=== PATIENT | female | born 1940 | race Caucasian/White ===

== ENCOUNTER → 2016-12-18 | Outpatient (CLI) | payer MEDICARE, OTHER ==
[~2016-12-18] MED LIST: APIDRA100 U/ML SC; APIDRAVL SC; ASPIR-LOW81 MG PO; ASPIR-LOX325 MG PO; ASPIRIN E.C. 8181 MG PO; CALCIUM + D 6001 TA1 PO; CARDI-OMEGA1000 MG PO; CENTRUM SILVER1 TA1 PO; CRESTOR10 MG PO; CRESTOR20 MG PO; DOXYCYCLINE 10100 MG PO; EVISTA; EVISTA 60MG60 MG/TAB PO; FISH OIL CONC1000 MG PO; FOSAMAX 70MG TA70 MG PO; HCTZ 25MG TAB25 MG PO; HUMALOG100 U/ML SC; IMDUR 30MG30 MG/TAB PO; IMDUR 60MG60 MG/TAB PO; K-DUR 2020 MEQ PO; LANTUS SQ; LANTUS100 U/ML SQ; LASIX 40MG TABL40 MG PO; LIORESAL 1010 MG/TAB PO; LISINOPRIL5 MG PO; LOPRESSOR 225 MG/TAB PO; LOPRESSOR 550 MG/TAB PO; METOPROLOL SUCC25 MG PO; NATURAL IRON65 MG PO; NORCO 325 MG-51 TAB PO; NORVASC; NORVASC PO; NORVASC5 MG PO; NOVOLOG 100U100 U/M1 SQ; NOVOLOG 100U100 U/ML SQ; OCUVITE1 TA1 PO; PLAVIX 75MG TAB75 MG PO; POTASSIUM CH2 MEQ/ML PO; POTASSIUM CL 220 MEQ PO; PRINIVIL10 MG PO; PRINIVIL40 MG PO; SYNTHROID0.075 MG/T PO; TIROSINT50 MC1 PO; TOPROL XL25 MG PO; VITAMIN C500 MG PO; ZOCOR 20MG20 MG PO; ZOCOR 40MG40 MG PO; ZOCOR40 MG PO; [UNRECOGNIZED DRUG - OTHER] PO
== END ==
LOC: MC.RAD 09:57
DX: Z12.31 Encounter for screening mammogram for malignant neoplasm of breast (principal)

== ENCOUNTER 2017-04-23 08:44 | Day surgery (SDC) | payer MEDICARE, OTHER ==
[2006-01-25 15:25] VITALS: BP 143/81
[~2017-04-23] VITALS: Ht 152.4 cm; Wt 71.7 kg
[~2017-04-23 08:44] MED LIST changes: -HCTZ 25MG TAB25 MG PO; -LOPRESSOR 550 MG/TAB PO; -NATURAL IRON65 MG PO; -NOVOLOG 100U100 U/M1 SQ; -PRINIVIL40 MG PO; -VITAMIN C500 MG PO
[2017-04-23] MEDS ORDERED: PRINIVIL40 MG PO (09:17)
[2017-04-23] MEDS ORDERED: LOPRESSOR 550 MG/TAB PO (09:18)
[2017-04-23] MEDS ORDERED: HCTZ 25MG TAB25 MG PO (09:18)
[2017-04-23] MEDS ORDERED: VITAMIN C500 MG PO (09:19)
[2017-04-23] MEDS ORDERED: NOVOLOG 100U100 U/M1 SQ (09:19)
[2017-04-23] MEDS ORDERED: NATURAL IRON65 MG PO (09:20)
[2017-04-23 09:47] VITALS: BP 173/66; PULSE 61; TEMP 98.4
[2017-04-23 10:50] VITALS: BP 166/67; PULSE 58; TEMP 97.8
[2017-04-23 11:05] VITALS: BP 160/60; PULSE 65
[2017-04-23 11:20] VITALS: BP 162/55; PULSE 54
[2017-04-23 11:35] VITALS: BP 164/63; PULSE 58
[2017-04-23 13:57] VITALS: BP 127/57; PULSE 51
== END 2017-04-23 13:15 | disposition home or self-care (01) ==
LOC: SDCO 08:44
DX: K29.50 Unspecified chronic gastritis without bleeding (principal); K29.80 Duodenitis without bleeding; D50.9 Iron deficiency anemia, unspecified; E78.00 Pure hypercholesterolemia, unspecified; I10 Essential (primary) hypertension; E11.9 Type 2 diabetes mellitus without complications; Z90.710 Acquired absence of both cervix and uterus; Z95.1 Presence of aortocoronary bypass graft; Z79.4 Long term (current) use of insulin; Z83.71 Family history of colonic polyps
CPT/HCPCS: J2250; J2405; J3010; J7030

== ENCOUNTER → 2017-09-23 | Outpatient (CLI) | payer MEDICARE, OTHER ==
[~2017-09-23] MED LIST changes: +HCTZ 25MG TAB25 MG PO; +LOPRESSOR 550 MG/TAB PO; +NATURAL IRON65 MG PO; +NOVOLOG 100U100 U/M1 SQ; +PRINIVIL40 MG PO; +VITAMIN C500 MG PO
== END ==
LOC: COL.PUL 11:10
DX: I27.20 Pulmonary hypertension, unspecified (principal)
CPT/HCPCS: A9539; A9540

== ENCOUNTER → 2018-06-28 | Outpatient (CLI) | payer MEDICARE, OTHER | LOC: MC.RAD 13:33 | DX: Z12.31 Encounter for screening mammogram for malignant neoplasm of breast (principal) ==

== ENCOUNTER → 2019-09-18 | Outpatient (CLI) | payer MEDICARE, OTHER | LOC: MC.RAD 09:41 | DX: Z12.31 Encounter for screening mammogram for malignant neoplasm of breast (principal) ==

== ENCOUNTER → 2020-09-19 | Outpatient (CLI) | payer MEDICARE, OTHER | LOC: MC.RAD 08:59 | DX: Z12.31 Encounter for screening mammogram for malignant neoplasm of breast (principal) ==

== ENCOUNTER 2023-03-23 15:16 | Emergency (ER) | payer MEDICARE, OTHER ==
[~2023-03-23] VITALS: Ht 152.4 cm; Wt 63.6 kg
[~2023-03-23 15:16] MED LIST changes: -CALCIUM + D 6001 TA1 PO; +CEPHALEXIN500 M1 PO; +COZAAR 50MG50 MG/TAB PO; +CVS GLUCOSE BIT1 CTB PO; +FISH OIL1000 MG PO; +GLUCAGEN1 MG IV; -K-DUR 2020 MEQ PO; +K-DUR20 MEQ PO; +LIPITOR20 MG PO; +NITROSTAT0.4 MG/TAB SL; +NORVASC2.5 MG PO; +OS-CAL 500 + D1 TAB PO; +REFRESH TEARS 330 ML OP; +TOPROL XL 25MG25 MG PO; +TRIAMCINOLONE A15 G3 TP
[2023-03-23 15:36] VITALS: TEMP 98.1
[2023-03-23 16:45] VITALS: BP 174/73; PULSE 98
== END 2023-03-23 16:59 | disposition home or self-care (01) ==
LOC: COL.ER 15:16
DX: S51.812A Laceration without foreign body of left forearm, initial encounter (principal); Z96.631 Presence of right artificial wrist joint; Z28.310 Unvaccinated for COVID-19; W22.09XA Striking against other stationary object, initial encounter

== ENCOUNTER 2024-08-04 09:56 | Observation (INO) | payer MEDICARE, OTHER ==
[2024-08-04] VITALS (12 sets, daily range): BP systolic 99–118; BP diastolic 39–61; PULSE 67–75; TEMP 97.3–97.9
[~2024-08-04] VITALS: Ht 142.2 cm; Wt 72.5 kg
[~2024-08-04 09:56] MED LIST changes: +FERRO-TIME325 MG PO; +PROTONIX 40MG T40 MG PO
[2024-08-04] MEDS ORDERED: NS 1,000 ML IV ONE ×2 (10:30→11:45)
[2024-08-04 10:50] LABS: BASO % 0.4 % (0.0-2.0); EOS % 0.6 % (0.0-4.0); GRAN # 6.2 K/mm3 (1.4-6.5); GRAN % 86.3 % (42.2-75.2); HEMATOCRIT 22.9 % (37.0-47.0); HEMOGLOBIN 7.1 g/dl (12.5-16.0); LYMPH # 0.5 K/mm3 (1.2-3.4); LYMPH % 7.3 % (20.0-51.0); MEAN CELL VOLUME 103 fl (80.0-100.0); MEAN CORPUSCULAR HEMOGLOBIN 32 pg (27-31); MEAN CORPUSCULAR HGB CONC 31 g/dl (33.0-37.0); MEAN PLATELET VOLUME 10.2 fl (7.4-10.4); MONO # 0.4 K/mm3 (0.1-0.6); MONO % 5.3 % (1.7-9.3); PLATELET COUNT 188 K/mm3 (130-400); RED BLOOD COUNT 2.22 M/mm3 (4.10-5.30)
[2024-08-04 11:08] LABS: BILIRUBIN,TOTAL 0.7 mg/dL (0.2-1.2); CALCIUM 8.6 mg/dL (8.4-10.2); CREATININE, serum 1.57 mg/dL (0.57-1.11)
[2024-08-04] MEDS ORDERED: Pantoprazole 40 MG in NS 10 ML IV SCH (11:48)
[2024-08-04] MEDS ORDERED: *Potassium Replacement Protocol MC SCH (12:30)
[2024-08-04] MEDS ORDERED: NORVASC 5MG5 MG/TAB PO (12:36)
[2024-08-04] MEDS ORDERED: LUTEIN20 M1 PO (12:37)
[2024-08-04] MEDS ORDERED: ASPIRIN 81M81 MG/TA2 PO (12:38)
[2024-08-04] MEDS ORDERED: Dextrose 50% Water 25 GM/50 ML SYRINGE IV PRN (13:45)
[2024-08-04] MEDS ORDERED: Dextrose (Glucose) 15 GM (4 x 3.75 GM) Chewable TABLET PACK PO PRN (13:45)
[2024-08-04] MEDS ORDERED: Glucagon 1 MG VIAL IM PRN (13:45)
[2024-08-04] MEDS ORDERED: Lidocaine PF 2% (20 MG/ML) 5 ML VIAL ONE (14:39)
[2024-08-04] MEDS ORDERED: ePHEDrine 50 MG/ML VIAL ONE ×2 (14:58→15:38)
[2024-08-04] MEDS ORDERED: Glycopyrrolate 0.2 MG/ML 1 ML VIAL ONE (14:59)
[2024-08-04] MEDS ORDERED: Phenylephrine 10 MG/ML VIAL ONE (15:21)
[2024-08-04] MEDS ORDERED: NS 250 ML IV ONE (15:45)
[2024-08-04] MEDS ORDERED: Insulin Lispro (HumaLOG) SQ SCH (16:00)
--- NOTE | 2024-08-04 16:22 | NUR ---
Blood transfusion started. Patient A&Ox4. VSS. IV CDI. Call light within reach
--- NOTE | 2024-08-04 16:37 | NUR ---
Nurse at the bedside first 15 minutes. A&Ox4. VSS. IV CDI. Patient tolerating well. No further needs expressed. Bed alarm on
--- NOTE | 2024-08-04 19:12 | NUR ---
Blood transfusion complete. Patient A&Ox4. VSS 1.5L NC O2 while sleeping. IV CDI. Denies pain and discomfort. Patient ambulated with SB assist and back to bed. No further needs expressed. Call light within reach. Bed alarm on
--- NOTE | 2024-08-04 19:45 | NUR ---
Initial shift assessment done- denies pain, unit of blood was just completed during shift change- will get a repeat H&H at 0115 per orders, VSS, no rectal bleeding, o2 sats 88% on the 1.5L/nc, respiratory therapy moved her up to 2L/nc at this time, on fall Risk-bed alarm on, protocol followed. pt is calling for assistance to bathroom.
[2024-08-04] MEDS ORDERED: Atorvastatin 20 MG TAB PO SCH (21:00)
[2024-08-05] VITALS (12 sets, daily range): BP systolic 101–127; BP diastolic 50–67; PULSE 65–72; TEMP 97.6–98.6
[2024-08-05 02:04] LABS: HEMATOCRIT 23.5 % (37.0-47.0); HEMOGLOBIN 8.2 g/dl (12.5-16.0)
--- NOTE | 2024-08-05 05:50 | NUR ---
Did get a couple hours of sleep tonight, VSS, did refuse her sliding scale insulin during the night-- states she always drops her blood sugars during the night. Most recent blood sugar 174. No stools during the night-most recent hgb 8.2 at 0200.
[2024-08-05 07:01] LABS: BASO % 0.4 % (0.0-2.0); EOS # 0.1 K/mm3 (0.0-0.7); EOS % 2.1 % (0.0-4.0); GRAN # 3.7 K/mm3 (1.4-6.5); GRAN % 75.7 % (42.2-75.2); LYMPH # 0.6 K/mm3 (1.2-3.4); LYMPH % 11.7 % (20.0-51.0); MEAN CORPUSCULAR HGB CONC 35 g/dl (33.0-37.0); MEAN PLATELET VOLUME 10.3 fl (7.4-10.4); MONO # 0.5 K/mm3 (0.1-0.6); MONO % 9.9 % (1.7-9.3); PLATELET COUNT 153 K/mm3 (130-400); RED BLOOD COUNT 2.48 M/mm3 (4.10-5.30); REDCELL DISTRIBUTION WIDTH-CV 16.6 % (11.5-14.5)
[2024-08-05 07:13] LABS: HEMATOCRIT 24.4 % (37.0-47.0); HEMOGLOBIN 8.5 g/dl (12.5-16.0); MEAN CELL VOLUME 98 fl (80.0-100.0); MEAN CORPUSCULAR HEMOGLOBIN 34 pg (27-31)
--- NOTE | 2024-08-05 07:20 | NUR ---
Pt laying in bed. Denies needs at this time. Call light in reach.
[2024-08-05 07:21] LABS: ALBUMIN 2.6 g/dL (3.4-4.8); CALCIUM 8.2 mg/dL (8.4-10.2); CREATININE, serum 1.29 mg/dL (0.57-1.11); MAGNESIUM 2.1 mg/dL (1.6-2.6); PHOSPHOROUS 2.9 mg/dL (2.3-4.7); POTASSIUM 3.9 mEq/L (3.5-4.5)
[2024-08-05] MEDS ORDERED: Potassium Bicarbonate/Citrate 20 MEQ Effervescent TAB PO ONE (08:15)
--- NOTE | 2024-08-05 08:45 | NUR ---
Pt sitting up in bed. A&Ox4. VSS. S1S2. Clear lungs on 2 L via NC. ABD round, soft, non-tender with audible bowel sounds. Palpable pulses in all extremities with good strength. Pt denies pain, n/v, headache. INT in L forearm patent, no issues. Repositioned Pt in bed for breakfast. No further needs. Call light in reach.
[2024-08-05] MEDS ORDERED: Ferrous Sulfate 325 MG TAB PO SCH (09:00)
--- NOTE | 2024-08-05 10:27 | NUR ---
SW met with patient to complete initial assessment for discharge planning. Patient confirms that she lives in [place] with her Ed ([phone]). She states her son Jignesh ([phone]) and her son Hector are DPOA for her. Patient sees Dr. Escalante as her PCP and uses [facility] pharmacy. Patient states her only DME is a CPAP. Patient plans to return home independently when discharged with to drive her. Discharge plan: Home
[2024-08-05] MEDS ORDERED: amLODIPine 5 MG TAB PO SCH (11:16)
[2024-08-05] MEDS ORDERED: Furosemide 40 MG TAB PO SCH (11:16)
[2024-08-05] MEDS ORDERED: Isosorbide Mononitrate CR (24-HR) 30 MG TAB PO SCH (11:19)
--- NOTE | 2024-08-05 14:17 | NUR ---
Data: Patient accepted spiritual care visit offered during Sales Account Executive rounds. Patient was concerned that her had not been able to call her room phone. Sales Account Executive attempted to call phone. Ringer does not work, but the call does go through. Assessment: Patient is social and enjoys having someone to speak with. Patient feels connected to her scientology in [place] and believes they are (or will be after tomorrow) praying for her. Plan of Care: Sales Account Executive provided supportive listening and prayer. Sales Account Executive spoke with POT ROOM SUPERVISOR about the phone cage loader. POT ROOM SUPERVISOR will replace the cage loader. Chaplains will remain available as needed/requested while Patient is admitted to this hospital.
--- NOTE | 2024-08-05 16:49 | NUR ---
Pt reported having blurred vision. Pt B. Offerred Pt apple juice and peanut butter. Pt elected to have apple juice for now. No further needs. Will continue to monitor.
--- NOTE | 2024-08-05 20:30 | NUR ---
INitial shift assessment done- requesting some pudding, VSS, o2 at 2L/nc , o2 sats 93%.
[2024-08-05] MEDS ORDERED: Losartan 50 MG TAB PO SCH (21:00)
[2024-08-06] VITALS (7 sets, daily range): BP systolic 116–126; BP diastolic 49–66; PULSE 70–78; TEMP 98.1–98.7
--- NOTE | 2024-08-06 05:49 | NUR ---
Has been sleeping good for the past 3-4 hrs,, VSS o2 sats 93% on the 2L/nc
[2024-08-06 06:42] LABS: BASO % 0.6 % (0.0-2.0); EOS # 0.2 K/mm3 (0.0-0.7); EOS % 3.4 % (0.0-4.0); GRAN # 3.8 K/mm3 (1.4-6.5); GRAN % 76.2 % (42.2-75.2); LYMPH # 0.6 K/mm3 (1.2-3.4); LYMPH % 10.9 % (20.0-51.0); MEAN CELL VOLUME 101 fl (80.0-100.0); MEAN CORPUSCULAR HGB CONC 34 g/dl (33.0-37.0); MONO # 0.4 K/mm3 (0.1-0.6); MONO % 8.7 % (1.7-9.3); PLATELET COUNT 163 K/mm3 (130-400); RED BLOOD COUNT 2.51 M/mm3 (4.10-5.30); REDCELL DISTRIBUTION WIDTH-CV 17.4 % (11.5-14.5)
[2024-08-06 06:53] LABS: HEMATOCRIT 25.4 % (37.0-47.0); HEMOGLOBIN 8.5 g/dl (12.5-16.0); MEAN CORPUSCULAR HEMOGLOBIN 34 pg (27-31)
[2024-08-06 07:11] LABS: ALBUMIN 2.5 g/dL (3.4-4.8); CALCIUM 8.3 mg/dL (8.4-10.2); CREATININE, serum 1.19 mg/dL (0.57-1.11); MAGNESIUM 2.1 mg/dL (1.6-2.6); PHOSPHOROUS 2.2 mg/dL (2.3-4.7); POTASSIUM 4.3 mEq/L (3.5-4.5)
--- NOTE | 2024-08-06 09:08 | NUR ---
Patient sitting up in bed, alert and oriented x4, VSS. Denies any pain or discomfort. Assessment complted, meds given. No further needs at this time. Call light within reach.
--- NOTE | 2024-08-06 14:20 | NUR ---
SONI notified by KATHRYN Vilchis that patient is discharging to home today and requires 2 lpm oxygen. SONI called Huong at [facility] to inquire about patient's diangosis to qualify her for home oxygen. SONI sent clinicals and 02 order form to [facility] per conversation with patient and who are agreeable to have [facility] be provider of 02 due to their pharmacy in [place] being closed today. SONI spoke with Huong again and she verified that patient's CAD dianosis does qualify her for 02 at home and she will deliver portable oxygen to patient within one hour. RN and patient notified.
--- NOTE | 2024-08-06 15:42 | NUR ---
Patient was provided with discharge information, all questions answered. IV access was discontinued. Portable oxygen arrived. Pt going home with her .
== END 2024-08-06 15:50 | disposition home or self-care (01) ==
LOC: COL.ER 09:56 → MEDICAL 11:46
PROVIDERS: Physician Assistant; ADMIT Internal Medicine
DX: D50.0 Iron deficiency anemia secondary to blood loss (chronic) (principal); D53.9 Nutritional anemia, unspecified; D50.9 Iron deficiency anemia, unspecified; D50.8 Other iron deficiency anemias; K92.1 Melena; E10.65 Type 1 diabetes mellitus with hyperglycemia; E10.22 Type 1 diabetes mellitus with diabetic chronic kidney disease; I12.9 Hypertensive chronic kidney disease with stage 1 through stage 4 chronic kidney disease, or unspecified chronic kidney disease; N18.9 Chronic kidney disease, unspecified; E78.5 Hyperlipidemia, unspecified; I25.10 Atherosclerotic heart disease of native coronary artery without angina pectoris; I35.0 Nonrheumatic aortic (valve) stenosis; E03.9 Hypothyroidism, unspecified; R00.1 Bradycardia, unspecified; Z95.0 Presence of cardiac pacemaker; K44.9 Diaphragmatic hernia without obstruction or gangrene; Z95.1 Presence of aortocoronary bypass graft; Z79.899 Other long term (current) drug therapy; Z79.890 Hormone replacement therapy; Z79.82 Long term (current) use of aspirin; Z79.4 Long term (current) use of insulin
CPT/HCPCS: G0378; J1815; J2371; J2470; J2704; J7030; J7050; P9016